=== PATIENT | female | born 2000 | race Hispanic/Latino ===

== ENCOUNTER 2019-07-05 20:33 | Inpatient (IN) | payer MEDICAID, SELFPAY ==
[~2019-07-05 20:33] MED LIST: Iopamidol 370 76% 100 ML VIAL ONE
[2019-07-05 20:59] LABS: #Eosinphils 0.1 thou/uL (0.0-0.7); #Monocytes 1.4 thou/uL (0.11-0.59); #Neutrophils 9.1 thou/uL (1.40-6.50); %Basophils 0.2 % (0.0-1.0); %Eosinophils 0.5 % (0.0-10.0); %Neutrophils 72.2 % (31.0-61.0); Hemoglobin 14.5 g/dL (12.0-16.0); Mean Corpuscular HGB CONC 34.1 g/dL (32.0-36.0); Mean Corpuscular Hemoglobin 30.6 pg (25.0-35.0); Mean Corpuscular Volume 89.7 fL (78.0-98.0); Mean Platelet Volume 6.4 fL (7.4-10.4); Platelet Count 395 thou/uL (130-400); RBC Distribution Width 11.3 % (11.5-14.5); Red Blood Cell (RBC) Count 4.72 mill/uL (4.00-5.20); White Blood Cell (WBC) Count 12.6 thou/uL (4.8-10.8)
[2019-07-05 21:22] LABS: ALT (SGPT) 58 U/L (8-55); AST (SGOT) 93 U/L (5-34); Albumin 4.5 g/dL (3.5-5.0); Alkaline Phosphatase 184 U/L (40-100); Anion Gap 15 mmol/L (10-20); BUN (Urea Nitrogen) 8 mg/dL (7.0-18.7); Bilirubin, Total 0.4 mg/dL (0.2-1.2); Calc. Creatinine Clearance 0 mL/min (70-130); Calcium 9.6 mg/dL (7.8-10.44); Carbon Dioxide 26 mmol/L (22-29); Chloride 99 mmol/L (98-107); Estimated GFR-MDRD 88; Globulin 4.2 g/dL (2.4-3.5); Glucose 109 mg/dL (70-105); Potassium 3.8 mmol/L (3.5-5.1); Protein, Total 8.7 g/dL (6.0-8.3); Sodium 136 mmol/L (136-145)
--- NOTE | 2019-07-05 21:31 | RAD ---
PORTABLE CHEST: 07/05/19 HISTORY: Abdominal pain. Lung ortega are clear. Heart and mediastinum unremarkable. IMPRESSION: No acute process. POS: OFF
[2019-07-05 21:40] LABS: Bilirubin Negative (Negative); Blood, Urine 2+ (Negative); Clarity Turbid (Clear); Glucose, Urine (Dipstick) Normal (Negative); Leukocyte 500 Leu/uL (Negative); Nitrite Negative (Negative); Protein, Urine (Dipstick) 20 mg/dL (Neg-Trace); Renal Epithelial 0-3 HPF (None Seen); Transitional Epithelial 0-3 HPF (None Seen); WBC/HPF Greater than 50 HPF (0-3)
[2019-07-05 21:42] LABS: Bacteria/HPF 1+ HPF (None Seen); Yeast-Budding 1+ HPF (None Seen)
[2019-07-05 21:51] LABS: Pregnancy Test - Urine (BHCG) Negative (Negative); Pregu Control Background? CLEAR/WHITE (CLR/WHITE); Pregu Control Bar Appear? YES (CONTROL BAR); Specific Gravity 1.015 (1.002-1.036)
[2019-07-05] MEDS ORDERED: Piperacillin/Tazobactam 4.5 GM VIAL ONE (21:51)
[2019-07-05] MEDS ORDERED: Ondansetron PF 4 MG/2 ML Vial ONE (21:51)
[2019-07-05] MEDS ORDERED: Morphine 4 MG/ML VIAL ONE (21:51)
[2019-07-05] MEDS ORDERED: Acetaminophen 1,000 MG in Premix Bag 1 BAG IVPB SCH (22:00)
--- NOTE | 2019-07-05 22:47 | ULT ---
Gallbladder ultrasound: Multiple grayscale images of right upper quadrant obtained according to protocol. INDICATIONS: Right upper quadrant pain. FINDINGS: Gallbladder has a normal sonographic appearance. No evidence of gallstones. Common bile duct is normal caliber. Liver is unremarkable. Pancreas is mostly obscured but appears unremarkable as visualized. Right kidney is imaged and appears unremarkable. IMPRESSION: Unremarkable gallbladder ultrasound.
--- NOTE | 2019-07-06 00:03 | CT ---
CT ABDOMEN AND PELVIS WITH IV CONTRAST: 07/05/19 HISTORY: Right lower quadrant pain. Lung bases clear. Liver, spleen, and pancreas unremarkable. Adrenal glands normal. There is abnormal enhancement in the right kidneys renal cortex. There is a focal area of low attenua tion measuring approximately 2.5 cm. Findings were concerning for focal pyelonephritis. Follow-up is recommended. There is other blotchy areas of enhancement in the upper pole of the right kidney. Left kidney enhancement is normal. The urinary bladder shows mild bladder wall thickening which may also indicate urinary tract infecti on. Small bowel loops are normal. Appendix appears normal. Stool throughout the colon. Uterus and adnexa unremarkable. Left ovarian cyst measuring 2 cm. Small amount of free fluid in the c ul-de-sac. IMPRESSION: Blotchy enhancement of the right renal cortex most consistent with pyelonephritis. Mild urinary bladd er wall thickening. Recommend clinical correlation regarding urinary tract infection. Suggest follow- up after treatment. POS: OFF
[2019-07-06] MEDS ORDERED: Ondansetron ODT 4 MG TAB PO PRN (01:10)
[2019-07-06] MEDS ORDERED: Acetaminophen 650 MG Suppository PR PRN (01:10)
[2019-07-06] MEDS ORDERED: Ondansetron PF 4 MG/2 ML Vial IVP PRN (01:10)
[2019-07-06] MEDS ORDERED: Acetaminophen 325 MG TAB PO PRN (01:10)
--- NOTE | 2019-07-06 03:27 | HP ---
PRIMARY CARE DOCTOR: The patient has no PCP. CODE STATUS: Full code. TIME OF EVALUATION: 1:50 a.m. CHIEF COMPLAINT: Abdominal pain. HISTORY OF PRESENT ILLNESS: A 19 [id number] patient with no significant past medical history, who came to the hospital after having severe gradually worsened abdominal pain in the right lower quadrant, has been present for 4 days associated with nausea, vomiting and fever. No clear triggers. No alleviating factors except for medical treatment. REVIEW OF SYSTEMS: CONSTITUTIONAL: No fevers, chills, generalized weakness. RESPIRATORY: No cough, sputum production, shortness of breath. CARDIOVASCULAR: No chest pain or palpitation. GASTROINTESTINAL: The patient has nausea, vomiting. No diarrhea. The patient has right lower quadrant pain. [employer]: No dizziness, headache or feeling lightheaded. GENITOURINARY: No burning on urination. EXTREMITIES: No leg swelling. All other systems were reviewed and negative except for the findings mentioned above. PAST MEDICAL HISTORY: Negative. SOCIAL HISTORY: Negative. FAMILY HISTORY: Reviewed, noncontributory for current presentation. PAST SURGICAL HISTORY: and endometriosis surgery. PSYCHIATRIC HISTORY: Depression. KNOWN ALLERGIES: No known drug allergies. REPORTED MEDICATIONS: None. PHYSICAL EXAMINATION: VITAL SIGNS: On presentation, blood pressure 125/88 with heart rate of 133, respiratory rate was 18, temperature 102.7, pain was 8, oxygen saturation was 98 % on room air, heart rate has remained elevated with a temperature in normal range and she has an episode of hypotension with systolic blood pressure in the 80s. GENERAL APPEARANCE: The patient looks ill. HEENT: Eyes, normal conjunctiva. Moist oral mucosa. Anicteric. No JVD. RESPIRATORY: Bilateral air entry. No rales. No wheezes. Symmetric expansion. CARDIOVASCULAR: Normal rate. Regular rhythm. No murmurs. No gallop. No edema. ABDOMEN: Soft, normal bowel sounds. The patient has right upper quadrant pain and also in the right lower quadrant that is severe, radiating to the back MUSCULOSKELETAL: Baseline range of motion and strength. Skin is warm and intact. No pallor. No rash. No redness. Capillary refill seems to be intact. NEUROLOGIC: No evidence of any new focal weakness. Cranial nerves seems to be intact. PSYCHIATRIC: Patient is in good mood. No anxiety. Optimal judgment. IMAGIN. EKG was reviewed. The patient has sinus tachycardia at the rate of 125, PA 152, QRS 74, QT corrected 464. 2. CT abdomen and pelvis was done. The patient has blotchy enhancement in the right renal cortex most consistent with pyelonephritis, mild urinary bladder wall thickening, recommend clinical correlation. Regarding urinary tract infection, she is to followup with us for treatment. 3. Abdominal ultrasound, the patient has unremarkable gallbladder ultrasound. 4. Chest x-ray was done, the patient had no acute process. LABORATORY DATA: Labs were done, the patient has white count of 12.6, hemoglobin 14.5, MCV 89.7, platelet count 295. Chemistry: Sodium 136, potassium 3.8, chloride 99, carbon dioxide 26, anion gap 15, BUN 8, creatinine 0.83, GFR 8, glucose 109, lactic acid 1.9, calcium 9.6 total bilirubin 0.4, AST 93, ALT 58, alkaline phosphatase 184. Serum total protein 8.7, albumin 4.5, globulin 4.2, albumin to globulin ratio 1.1. Urine was done, was positive, white count greater than 50, too numerous to count, some rbc's. Urine leukocyte esterase positive. ASSESSMENT AND PLAN: The patient will be placed in the hospital with following medical problems. 1. Urinary tract infection that includes kidney leading to pyelonephritis. The patient has been started on broad-spectrum antibiotics. We will continue for now. 2. Follow cultures, adjust treatment as per sensitivity. 3. Sepsis, the patient has persistent tachycardia during my examination. Heart rate was in the 120s. Blood pressure has been in the lower side. When I was examining the patient with systolic in the 80s, has recovered after fluids, so this qualifies for severe sepsis. 4. Source of urinary tract infection/pyelonephritis. We will continue antibiotics and adjust treatment as per sensitivity. 5. Hyperglycemia, 109, this is mild. This is likely secondary to underlying physical distress. We will monitor. No further treatment to be given right now. 6. She has elevated liver function tests, likely secondary to sepsis. We will monitor and treat accordingly. Right upper quadrant ultrasound was normal. 7. Deep venous thrombosis prophylaxis. Job ID: [id number] [facility]
[2019-07-06 03:50] LABS: #Lymphocytes 1.6 thou/uL (1.20-3.40); #Monocytes 0.9 thou/uL (0.11-0.59); #Neutrophils 10.9 thou/uL (1.40-6.50); %Basophils 0.2 % (0.0-1.0); %Eosinophils 0.2 % (0.0-10.0); %Lymphocytes 11.6 % (28.0-48.0); %Monocytes 6.6 % (0.0-4.0); %Neutrophils 81.4 % (31.0-61.0); Hemoglobin 10.8 g/dL (12.0-16.0); Mean Corpuscular HGB CONC 34.3 g/dL (32.0-36.0); Mean Corpuscular Hemoglobin 31.3 pg (25.0-35.0); Mean Platelet Volume 6.5 fL (7.4-10.4); Platelet Count 290 thou/uL (130-400); RBC Distribution Width 11.3 % (11.5-14.5); Red Blood Cell (RBC) Count 3.45 mill/uL (4.00-5.20); White Blood Cell (WBC) Count 13.4 thou/uL (4.8-10.8)
[2019-07-06 04:11] LABS: Anion Gap 10 mmol/L (10-20); BUN (Urea Nitrogen) 5 mg/dL (7.0-18.7); Calc. Creatinine Clearance 0 mL/min (70-130); Calcium 6.7 mg/dL (7.8-10.44); Carbon Dioxide 19 mmol/L (22-29); Chloride 112 mmol/L (98-107); Estimated GFR-MDRD Greater than 90; Glucose 97 mg/dL (70-105); Potassium 3.4 mmol/L (3.5-5.1); Sodium 138 mmol/L (136-145)
[2019-07-06 06:55] VITALS: BMI 26.8
[2019-07-06] MEDS: Sodium Chloride 0.9% 1,000 ML IV SCH ×3 (07:00→23:51)
[2019-07-06] MEDS: Piperacillin/Tazobactam 4.5 GM in Sodium Chloride 0.9% 100 ML IVPB SCH ×3 (07:00→21:38)
[2019-07-06] MEDS ORDERED: FLU VACC QS2019-20(6MOS UP)/PF 60 MCG/0.5 ML SYRINGE IM ONE (07:15)
[2019-07-06] MEDS: Heparin 5,000 UNITS/ML VIAL SC SCH ×3 (07:50→20:22)
[2019-07-06] MEDS ORDERED: Potassium Chloride 20 MEQ TAB PO SCH (08:15)
[2019-07-06] MEDS: Calcium Citrate 950 MG TAB PO SCH ×2 (08:28→20:21)
--- NOTE | 2019-07-06 12:22 | PRG ---
DATE OF SERVICE: 07/06/2019 SUBJECTIVE: The patient is seen and examined at the bedside. She does not have much complaints to offer except for some pain in the right flank radiating to the right groin. She has some nausea and vomiting before. OBJECTIVE: VITAL SIGNS: Blood pressure is 98/63, pulse is 88, temperature is 98.5, respirations 16, O2 saturation is 99% on room air. HEENT: Head is atraumatic and normocephalic. Eyes are PERRLA. Sclerae are nonicteric. Oral mucosa is moist. NECK: Supple. LUNGS: Clear. HEART: S1, S2 normal. ABDOMEN: Soft, nontender, mildly tender in the right epigastric area in the flank to palpation. EXTREMITIES: No clubbing, cyanosis, or edema. NEUROLOGICAL: She is alert and oriented x4. There is no any motor or sensory deficit. Cranial nerves are intact. LABORATORY DATA: Labs showed white count of 13.4, hemoglobin of 10.8, hematocrit 31.4, platelet count is 290,000. Sodium of 138, potassium 3.4, chloride 112, CO2 of 19, BUN 5, creatinine 0.67, calcium 6.7, magnesium 1.8, lipase 7, vitamin D 6.4. Microbiology, blood cultures so far negative x2. IMPRESSION: 1. Right flank pain. We suspect that this is pyelonephritis. 2. Sepsis, improved. The patient is not tachycardic anymore. Her blood pressure is still on the lower side, but most likely, her normal blood pressure is running on the lower side too. She is a young girl. 3. Hyperglycemia. 4. Elevated liver function test, to be followed and the right upper quadrant ultrasound was normal. PLAN: Plan is to follow up on cultures. Continue Zosyn 4.5 g every 8 hours IV piggyback. Continue Tylenol p.r.n. and continue DVT prophylaxis with heparin and supplementation of potassium, vitamin D, and calcium. Hypoglycemia is going to be treated and we will follow up on her liver function tests. Job ID: [id number]
[2019-07-07] MEDS: Piperacillin/Tazobactam 4.5 GM in Sodium Chloride 0.9% 100 ML IVPB SCH (05:19)
[2019-07-07 07:48] LABS: #Eosinphils 0.2 thou/uL (0.0-0.7); #Lymphocytes 2.1 thou/uL (1.20-3.40); #Monocytes 1.1 thou/uL (0.11-0.59); #Neutrophils 5.7 thou/uL (1.40-6.50); %Basophils 0.5 % (0.0-1.0); %Eosinophils 1.8 % (0.0-10.0); %Lymphocytes 23.1 % (28.0-48.0); %Monocytes 11.7 % (0.0-4.0); %Neutrophils 62.9 % (31.0-61.0); Hemoglobin 12.5 g/dL (12.0-16.0); Mean Corpuscular HGB CONC 33.5 g/dL (32.0-36.0); Mean Corpuscular Hemoglobin 30.6 pg (25.0-35.0); Mean Corpuscular Volume 91.3 fL (78.0-98.0); Mean Platelet Volume 6.8 fL (7.4-10.4); Platelet Count 335 thou/uL (130-400); RBC Distribution Width 11.5 % (11.5-14.5); Red Blood Cell (RBC) Count 4.09 mill/uL (4.00-5.20); White Blood Cell (WBC) Count 9.1 thou/uL (4.8-10.8)
[2019-07-07 08:16] LABS: Anion Gap 15 mmol/L (10-20); BUN (Urea Nitrogen) 5 mg/dL (7.0-18.7); Calc. Creatinine Clearance 139 mL/min (70-130); Calcium 8.9 mg/dL (7.8-10.44); Carbon Dioxide 18 mmol/L (22-29); Chloride 108 mmol/L (98-107); Estimated GFR-MDRD Greater than 90; Glucose 88 mg/dL (70-105); Potassium 3.8 mmol/L (3.5-5.1); Sodium 137 mmol/L (136-145)
[2019-07-07] MEDS: Calcium Citrate 950 MG TAB PO SCH (08:18)
[2019-07-07] MEDS: Sodium Chloride 0.9% 1,000 ML IV SCH (08:18)
[2019-07-07] MEDS: Heparin 5,000 UNITS/ML VIAL SC SCH (08:19)
[2019-07-07 09:28] LABS: ALT (SGPT) 44 U/L (8-55); AST (SGOT) 51 U/L (5-34); Albumin 3.4 g/dL (3.5-5.0); Alkaline Phosphatase 147 U/L (40-100); Bilirubin, Direct 0.4 mg/dL (0.1-0.3); Bilirubin, Total 0.6 mg/dL (0.2-1.2); Protein, Total 6.7 g/dL (6.0-8.3)
[2019-07-07 11:20] VITALS: BP 124/76; TEMP 98.2
--- NOTE | 2019-07-07 21:12 | DIS ---
DATE OF ADMISSION: 07/06/2019 DATE OF DISCHARGE: 07/07/2019 FINAL DIAGNOSES AT THE TIME OF DISCHARGE: 1. Sepsis secondary to right pyelonephritis. 2. Right pyelonephritis. 3. Hyperglycemia. 4. Elevated liver function test, most likely related to infection. 5. Deficiency of vitamin D. HOSPITAL COURSE: The patient is a 19-year-old female, who was admitted to the hospital with acute onset of pain which was in the abdomen in the right lower quadrant, who presented for 4 days. This was associated with nausea, vomiting, and fever. They were not clear triggers. No alleviating factors. She came to the emergency room and was found to have temperature of 102.7 with heart rate of 133 and respiratory rate of 18, blood pressure was 125/88. She was saturating 98% on room air. The pain was rated at 8. At the time of ER evaluation, her white count was 12.6, hemoglobin 14.5, MCV 89.7, platelet count 295,000. Sodium 136, potassium 3.8, chloride 99, CO2 of 26, BUN 8, creatinine 0.83, AST 93, ALT 58, alkaline phosphatase 184. Urine was positive with white cell count greater than 50 to numerous to count some rbc's and esterase was positive. She had some episodes of hypotension while in the emergency room and she was treated with IV fluids. She got admitted to the hospital for further evaluation. Her EKG at the time of evaluation showed sinus tachycardia with rate of [address] of the abdomen and pelvis showed blotchy enhancement in the right renal cortex most likely consistent with pyelonephritis and mild urinary bladder wall thickening. Abdominal ultrasound did not show any problems with her gallbladder and the chest x-ray did not show any acute process. The patient was placed on broad-spectrum antibiotics and got admitted to the hospital. Her white count gradually went down to 9.1. Her temperature was down to normal range. Her pain subsided quickly. Two blood cultures came back negative and urine culture came back positive for Escherichia coli 50,000-75,000 CFUs per mL. E coli was pansensitive except for Bactrim. She is doing well. PHYSICAL EXAMINATION: VITAL SIGNS: Her blood pressure is 124/76, temperature is 98.2, pulse is 80, respirations 16, O2 saturation is 99% on room air. She is evaluated and examined. LUNGS: Clear. HEART: S1, S2 normal. No S3. No S4. No any murmur. ABDOMEN: Soft and nontender. The patient is discharged home in good condition with recommendation to stay on regular diet. ACTIVITIES: As tolerated. MEDICATIONS: At the time of discharge; 1. Levofloxacin 500 mg daily for the next 12 days. 2. Vitamin D3 of 10,000 units daily since her vitamin D level came back low at 6.4. Clinically, she looks very good and she is discharged home. FOLLOWUP: She will follow up with her primary care physician. She is going to be established within a week. TIME SPENT: Time spent on this discharge is less than 30 minutes. Job ID: [id number]
== END 2019-07-07 13:09 | disposition home or self-care (01) | DRG 872 ==
LOC: ERS 20:33 → T4-A 07-06 00:25
PROVIDERS: ADMIT Hospitalist; ATTEND Hospitalist
DX: A41.9 Sepsis, unspecified organism (principal); N12 Tubulo-interstitial nephritis, not specified as acute or chronic; Z16.39 Resistance to other specified antimicrobial drug; R73.9 Hyperglycemia, unspecified; E55.9 Vitamin D deficiency, unspecified; N32.89 Other specified disorders of bladder; B96.20 Unspecified Escherichia coli [E. coli] as the cause of diseases classified elsewhere; F32.9 Major depressive disorder, single episode, unspecified; R65.20 Severe sepsis without septic shock; Z23 Encounter for immunization
CPT/HCPCS: 36415; 71045; 74177; 76705; 80048; 80053; 80076; 81003; 81015; 81025; 82306; 83605; 83690; 83735; 85025; 87040; 87077; 87086; 87186; 93005; J0131; J1644; J2270; J2405; J2543; J3490; Q9967

== ENCOUNTER 2020-09-01 07:20 | Inpatient (IN) | payer MEDICAID, OTHER, SELFPAY ==
[2020-09-01 08:22] VITALS: BMI 29.6
[2020-09-01] MEDS ORDERED: Butorphanol Tartrate 1 MG/ML VIAL SLOW IVP PRN (09:23)
[2020-09-01] MEDS ORDERED: Ondansetron PF 4 MG/2 ML Vial IVP PRN ×3 (09:23→15:34)
[2020-09-01] MEDS ORDERED: hydrALAZINE 20 MG/ML VIAL SLOW IVP PRN ×2 (09:23→15:34)
[2020-09-01] MEDS ORDERED: Famotidine/PF 20 mg/2ml Vial SLOW IVP PRN (09:23)
[2020-09-01] MEDS ORDERED: Bicitra 30 ML UDCUP PO PRN (09:23)
[2020-09-01] MEDS ORDERED: Lactated Ringer's 1,000 ML IV SCH (09:30)
[2020-09-01] MEDS ORDERED: CEFAZOLIN 2 GM in Premix Bag 1 BAG IVPB SCH (09:30)
--- NOTE | 2020-09-01 10:57 | ULT ---
RIGHT UPPER EXTREMITY VENOUS DOPPLER ULTRASOUND: HISTORY: Right upper extremity edema TECHNIQUE: Grayscale color-flow and spectral Doppler imaging of the deep venous systems of the right upper extre mity was performed FINDINGS: There is good flow, compression and normal spectral waveforms in the internal jugular, subclavian, ax illary, brachial, radial, ulnar, basilic and cephalic veins of the right upper extremity. IMPRESSION: No evidence of DVT in the right upper extremity.
[2020-09-01 11:07] LABS: Hemoglobin 11.6 g/dL (12.0-16.0); Mean Corpuscular HGB CONC 31.8 g/dL (32.0-36.0); Mean Corpuscular Hemoglobin 24.8 pg (27.0-31.0); Mean Corpuscular Volume 78.1 fL (78.0-98.0); Mean Platelet Volume 8.4 fL (7.4-10.4); Platelet Count 275 thou/uL (130-400); RBC Distribution Width 15.1 % (11.5-14.5); Red Blood Cell (RBC) Count 4.65 mill/uL (4.20-5.40); White Blood Cell (WBC) Count 9.7 thou/uL (4.8-10.8)
[2020-09-01 11:36] LABS: HBSAg Index 0.13 S/CO (0-0.99); Hep B Surf Ag Non-Reactive S/CO (NonReactive); Syphilis Antibody Nonreactive (Nonreactive); Syphilis Antibody Index 0.03 S/CO (<1.00 Non-Reactive)
[2020-09-01] MEDS ORDERED: Ondansetron PF 4 MG/2 ML Vial ONE (11:53)
[2020-09-01] MEDS ORDERED: Morphine PF 10 MG/10 ML VIAL ONE (11:53)
[2020-09-01] MEDS ORDERED: Oxytocin 10 UNITS/ML VIAL ONE (11:53)
--- NOTE | 2020-09-01 12:05 | PDOC.LDHP ---
Labor and Delivery H&P HPI: 20 y/o at 38 weeks and 1/7 presents farhat, declines TOLAC due to previous CPD. Current gestational age (weeks): 38 Due date: 09/14/20 Grav: 2 Para: 1 Current complications: none Abnormal US findings: No Current medications: pre-diana vitamins Previous surgical history: low tranverse CS Allergies/Adverse Reactions: Allergies Allergy/AdvReac Type Severity Reaction Status Date / Time No Known Allergies Allergy Verified 09/01/20 08:09 Social history: none - Physical Exam Vital signs reviewed and normal: yes General: NAD, resting Heart: RRR Lungs: CTAB Abdomen: gravid Extremeties: no edema FHT: category 1 - Vaginal Exam cm dilated: 2 - Assessment L&D Assessment: term patient in labor - Plan Plan: to OR for section
[2020-09-01] MEDS ORDERED: ePHEDrine 50 MG/ML VIAL ONE (12:32)
[2020-09-01] MEDS ORDERED: Ketorolac Tromethamine 30 MG/ML VIAL IVP PRN (12:37)
[2020-09-01] MEDS ORDERED: Naloxone HCl 0.4 mg/ml Vial IVP PRN ×2 (12:37)
[2020-09-01] MEDS ORDERED: diphenhydrAMINE 50 MG/ML VIAL IVP PRN (12:37)
[2020-09-01] MEDS ORDERED: Promethazine HCl 25 MG SUPP PR PRN (12:37)
[2020-09-01] MEDS ORDERED: Naloxone HCl 0.4 mg/ml Vial IV PRN (12:37)
[2020-09-01] MEDS ORDERED: Promethazine HCl 25 MG/ML VIAL IM PRN ×2 (12:37→15:34)
[2020-09-01] MEDS ORDERED: Communication Order-Pharmacy FS SCH (12:45)
[2020-09-01] MEDS ORDERED: Simethicone Chewable 80 MG TAB PO PRN (15:34)
[2020-09-01] MEDS ORDERED: Methylergonovine 0.2 MG/ML VIAL IM PRN (15:34)
[2020-09-01] MEDS ORDERED: Lanolin Ointment 7 GM TUBE TOP PRN (15:34)
[2020-09-01] MEDS ORDERED: Bisacodyl 10 MG SUPP PR PRN (15:34)
[2020-09-01] MEDS ORDERED: Measles/Mumps/Rubella 10 MCG/0.5 ML VIAL SC ONE (15:34)
[2020-09-01] MEDS ORDERED: Adacel (T-DAP) 0.5 ML SYRINGE IM ONE (15:34)
[2020-09-01] MEDS ORDERED: Misoprostol 200 MCG TAB PR PRN (15:34)
[2020-09-01] MEDS ORDERED: Varicella virus, LIVE 0.5 ML VIAL SC ONE (15:34)
[2020-09-01] MEDS ORDERED: diphenhydrAMINE 25 MG CAP PO PRN (15:34)
[2020-09-01] MEDS ORDERED: NS / Oxytocin 40 units/1000ml 1,000 ML IV SCH (15:34)
[2020-09-01 18:19] LABS: SARS-CoV-2 MS2 Positive; SARS-CoV-2 N Gene Negative; SARS-CoV-2 S Gene Negative; SARS-CoV-2 by NAA Not Detected (NotDetected); SARS-CoV-2 orf1ab Negative
[2020-09-02] MEDS ORDERED: HYDROcodone/Acetaminophen 5/325 mg Tablet PO PRN (00:45)
[2020-09-02] MEDS ORDERED: Zolpidem Tartrate 5 MG TAB PO PRN (00:45)
[2020-09-02] MEDS: Docusate Calcium (SURFAK) 240 MG CAP PO SCH ×3 (02:32→22:36)
[2020-09-02 05:38] LABS: Mean Corpuscular HGB CONC 31.3 g/dL (32.0-36.0); Mean Corpuscular Hemoglobin 24.5 pg (27.0-31.0); Mean Corpuscular Volume 78.2 fL (78.0-98.0); Mean Platelet Volume 7.9 fL (7.4-10.4); Platelet Count 222 thou/uL (130-400); RBC Distribution Width 15.2 % (11.5-14.5); Red Blood Cell (RBC) Count 4.08 mill/uL (4.20-5.40); White Blood Cell (WBC) Count 10.7 thou/uL (4.8-10.8)
[2020-09-02] MEDS: Prenatal Vitamin 1 TAB PO SCH (08:08)
[2020-09-02] MEDS ORDERED: FLU VACC QS2020-21(6MOS UP)/PF 60 MCG/0.5 ML SYRINGE IM ONE (08:30)
[2020-09-02] MEDS: HYDROcodone/Acetaminophen 5/325 mg Tablet PO PRN ×2 (11:13→17:47)
--- NOTE | 2020-09-02 19:50 | PDOC.PP ---
Post Progress Note Post Day #: 1 PO intake tolerated: yes Flatus: yes Ambulation: yes Vital Signs (12 hours) Temp Pulse Resp BP Pulse Ox 09/02/20 17:02 99.3 F 84 12 106/66 98 09/02/20 11:50 97.5 F L 71 20 117/71 97 09/02/20 08:21 98.3 F 71 20 117/71 97 Weight Weight 157 lb - Physical Examination General: NAD Cardiovascular: no m/r/g, RRR Respiratory: clear to auscultation bilaterally, non-labored breathing Abdominal: + bowel sounds, lochia, no distention, appropriately TTP Extremities: negative homans (B) Skin: CS incision dry & intact, no rash Neurological: no gross focal deficits Psychiatric: A&Ox3, normal affect Result Diagrams: 09/02/20 05:26 Additional Labs: Post Labs Hep Bs Antigen Non-Reactive S/CO (NonReactive) 09/01/20 10:40 Blood Type A POSITIVE 09/01/20 10:40
[2020-09-02] MEDS: Ibuprofen 800 MG TAB PO SCH (22:36)
[2020-09-03] MEDS: HYDROcodone/Acetaminophen 5/325 mg Tablet PO PRN (00:37)
[2020-09-03] MEDS: Ibuprofen 800 MG TAB PO SCH ×2 (05:51→15:58)
[2020-09-03] MEDS: Docusate Calcium (SURFAK) 240 MG CAP PO SCH (08:50)
[2020-09-03] MEDS: Prenatal Vitamin 1 TAB PO SCH (08:50)
[2020-09-03 11:41] VITALS: BP 117/79; TEMP 97.9
--- NOTE | 2020-09-03 17:03 | PDOC.PP ---
Post Progress Note Post Day #: 2 PO intake tolerated: yes Flatus: yes Ambulation: yes Vital Signs (12 hours) Temp Pulse Resp BP Pulse Ox 09/03/20 11:41 97.9 F 84 20 117/79 98 09/03/20 08:01 98.6 F 77 20 112/69 97 09/03/20 05:50 98.4 F 78 16 124/60 Weight Weight 157 lb - Physical Examination General: NAD Cardiovascular: no m/r/g, RRR Respiratory: clear to auscultation bilaterally Abdominal: + bowel sounds, lochia, no distention Extremities: negative homans (B) Skin: CS incision dry & intact, no rash Neurological: no gross focal deficits Psychiatric: A&Ox3, normal affect Result Diagrams: 09/02/20 05:26 Additional Labs: Post Labs Hep Bs Antigen Non-Reactive S/CO (NonReactive) 09/01/20 10:40 Blood Type A POSITIVE 09/01/20 10:40
--- NOTE | 2020-09-03 23:19 | OP ---
DATE OF PROCEDURE: 09/01/2020 TIME OF SURGERY: 12:50 [place] Standard Time. PREOPERATIVE DIAGNOSIS: Intrauterine at 38 weeks and one day with a spontaneous onset of labor and declined vaginal after . POSTOPERATIVE DIAGNOSIS: Intrauterine at 38 weeks and one day with a spontaneous onset of labor and declined vaginal after . PROCEDURE PERFORMED: Repeat low transverse section. FINDINGS: Viable female weighing 3230 g or 7 pounds 2 ounces; Apgars 8 and 9. QUANTITATIVE BLOOD LOSS: 340 mL. COMPLICATIONS: None. DETAILS OF THE PROCEDURE: After obtaining consent, the patient was taken back to the operating room where her regional anesthesia was found to be adequate. The patient was placed in the dorsal supine position with leftward tilt. The skin was tested for adequate anesthesia and a scalpel was then used to make a Pfannenstiel incision which was carried down to the underlying rectus fascia. The fascia was incised in the midline and the fascial incision extended in both lateral directions. 2 Galileo clamps were placed at the superior aspect of the fascia and the rectus muscles were dissected away. Similarly, 2 Galileo clamps were placed at the inferior aspect of the incision and rectus muscles dissected away. The rectus muscles were then in the midline and the peritoneum identified and entered bluntly with the hemostat. The peritoneal incision was then extended superiorly and inferiorly. A bladder blade was then placed within the peritoneal cavity and a bladder flap was made with Metzenbaum scissors and pickups with teeth. The bladder blade was replaced. A clean scalpel was used to make a uterine incision. The baby was then delivered with gentle fundal pressure without difficulty. The baby's mouth and nose were bulb suctioned and the cord clamped and cut. The baby was then handed to waiting attendants. Cord blood and cord gases were obtained. The placenta was manually extracted. The uterus exteriorized, cleared of all clots and debris, and repaired with #1 chromic suture in a running, locked fashion. Hemostasis at the uterine wall was excellent. The bladder flap was repaired with 2-0 Monocryl in a running fashion. The tubes and ovaries were inspected and appeared normal. The posterior cul-de-sac was blotted dry and the uterus was replaced within the abdomen. Again, the uterus was firm, and hemostasis was excellent at the uterine repair. Peritoneum was closed with 2-0 chromic suture in a running fashion. Fascia was reapproximated with 0 Vicryl, using 2 running sutures tied in the midline. The subcutaneous tissue was irrigated. Hemostasis was assured and the skin closed with 3-0 Monocryl and Dermabond adhesive. The patient was then transferred to the ambulatory bed and taken to recovery in stable condition. Job ID: [id number]
== END 2020-09-03 17:58 | disposition home or self-care (01) | DRG 788 ==
LOC: L&D/OP 07:20 → L&D 09:23 → 3SE 17:20
PROVIDERS: ADMIT Obstetrics & Gynecology; ATTEND Obstetrics & Gynecology
PROC: 10D00Z1 Extraction of Products of Conception, Low, Open Approach (ICD-10-PCS; principal; 2020-09-01)
DX: O34.211 Maternal care for low transverse scar from previous cesarean delivery (principal); Z3A.38 38 weeks gestation of pregnancy; Z37.0 Single live birth; Z23 Encounter for immunization; Z20.828 Contact with and (suspected) exposure to other viral communicable diseases
CPT/HCPCS: 36415; 51702; 85027; 86780; 86850; 86900; 86901; 87340; 87635; 90715; 99285; J0595; J0690; J1885; J2270; J2405; J3490; U0003

== ENCOUNTER 2020-11-29 18:24 | Observation (INO) | payer MEDICAID, SELFPAY ==
[~2020-11-29 18:24] MED LIST changes: -Iopamidol 370 76% 100 ML VIAL ONE; +Iopamidol-370 76% 500 ML 1 ML ONE
[2020-11-29 19:00] LABS: #Lymphocytes 1.2 thou/uL (1.20-3.40); #Monocytes 0.9 thou/uL (0.11-0.59); #Neutrophils 9.6 thou/uL (1.40-6.50); %Eosinophils 0.1 % (0.0-10.0); %Monocytes 7.3 % (0.0-10.0); %Neutrophils 82.5 % (42.0-75.0); Hemoglobin 13.2 g/dL (12.0-16.0); Mean Corpuscular HGB CONC 33.2 g/dL (32.0-36.0); Mean Corpuscular Hemoglobin 28.8 pg (27.0-31.0); Mean Corpuscular Volume 86.7 fL (78.0-98.0); Mean Platelet Volume 7.4 fL (7.4-10.4); Platelet Count 314 thou/uL (130-400); RBC Distribution Width 16.8 % (11.5-14.5); Red Blood Cell (RBC) Count 4.58 mill/uL (4.20-5.40); White Blood Cell (WBC) Count 11.6 thou/uL (4.8-10.8)
[2020-11-29 19:11] LABS: BHCG - Serum Negative (NEGATIVE); Pregs Control Background? CLEAR/WHITE (CLR/WHITE); Pregs Control Bar Appear? YES (CONTROL BAR)
[2020-11-29 19:25] LABS: ALT (SGPT) 73 U/L (8-55); AST (SGOT) 101 U/L (5-34); Albumin 4.2 g/dL (3.5-5.0); Alkaline Phosphatase 162 U/L (40-110); Anion Gap 15 mmol/L (10-20); BUN (Urea Nitrogen) 7 mg/dL (7.0-18.7); Bilirubin, Total 0.7 mg/dL (0.2-1.2); Calc. Creatinine Clearance 0 mL/min (70-130); Carbon Dioxide 24 mmol/L (22-29); Chloride 100 mmol/L (98-107); Globulin 3.9 g/dL (2.4-3.5); Glucose 113 mg/dL (70-105); Lipase 7 U/L (8-78); Potassium 3.4 mmol/L (3.5-5.1); Protein, Total 8.1 g/dL (6.0-8.3); Sodium 136 mmol/L (136-145)
[2020-11-29] MEDS ORDERED: Acetaminophen 500 MG TAB ONE (19:40)
--- NOTE | 2020-11-29 20:01 | RAD ---
XR Chest 1 View Portable HISTORY: Dyspnea COMPARISON: 07/05/2019 FINDINGS: The heart size is normal. The lungs are well expanded without focal areas of consolidation, pneumothorax or pleural effusions. IMPRESSION: No radiographic evidence of acute cardiopulmonary process.
[2020-11-29 20:09] LABS: Bilirubin Negative (Negative); Blood, Urine 1+ (Negative); Clarity Turbid (Clear); Glucose, Urine (Dipstick) Normal (Negative); Ketone, Urine 20 mg/dL (Negative); Leukocyte 500 Leu/uL (Negative); Nitrite Negative (Negative); Protein, Urine (Dipstick) 30 mg/dL (Neg-Trace); Specific Gravity, Urine 1.018 (1.002-1.036); Squamous Epithelial 0-3 HPF (0-3); Urobilinogen Normal mg/dL (Less than 2); WBC/HPF Greater than 50 HPF (0-3); pH, Urine 5.5 (5.0-9.0)
[2020-11-29 20:10] LABS: Bacteria/HPF 1+ HPF (None Seen)
[2020-11-29] MEDS ORDERED: cefTRIAXone\\ROCEPHIN 2 GM VIAL ONE (20:23)
[2020-11-29] MEDS ORDERED: Vancomycin 1 GM/200 ML BAG ONE (20:52)
--- NOTE | 2020-11-29 23:38 | CT ---
CT PULMONARY ANGIOGRAM WITH IV CONTRAST AND 3D POSTPROCESSING: Date; 11/29/2020 HISTORY: Elevated D-Dimer. Dyspnea. FINDINGS: No filling defects are seen in the pulmonary arterial vasculature to suggest pulmonary embolism. The thoracic aorta is well-opacified without aneurysm or dissection. No pleural or pericardial effusions are seen. No pneumothoraces, focal areas of consolidation, lung nodules, or masses are seen. No acute osseous abnormalities are identified. IMPRESSION: No CT evidence of pulmonary embolism or thoracic aortic dissection. POS: OFF
--- NOTE | 2020-11-29 23:41 | CT ---
CT ABDOMEN AND PELVIS WITH IV CONTRAST: Date: 11/29/2020 HISTORY: Fever, body aches, chills, dysuria, urinary frequency, and left abdominal pain. COMPARISON: 07/05/2019. FINDINGS: The lung bases are clear. No calcified gallstones are seen. The gallbladder is contracted. The liver, spleen, pancreas, adrenal glands, and right kidney are normal. There is a focal area of blotchy enha ncement in the left posterior renal cortex. No free air, free fluid, or lymphadenopathy are seen. The small bowel loops are not abnormally dilate d. A normal appearing appendix is present. Aorta is of normal caliber. Uterus and ovaries are present . No acute osseous abnormalities are seen. IMPRESSION: Findings are suspicious for left-sided pyelonephritis. POS: OFF
[2020-11-30 00:54] VITALS: BMI 24.8
[2020-11-30] MEDS ORDERED: Ondansetron PF 4 MG/2 ML Vial IVP PRN (01:00)
[2020-11-30] MEDS ORDERED: Ondansetron ODT 4 MG TAB SL PRN (01:00)
[2020-11-30] MEDS: Sodium Chloride 0.9% 1,000 ML IV SCH ×4 (01:16→13:27)
[2020-11-30] MEDS: Acetaminophen 325 MG TAB PO PRN ×2 (02:03→09:50)
[2020-11-30] MEDS ORDERED: Potassium Chloride 20 MEQ TAB PO SCH (03:45)
--- NOTE | 2020-11-30 03:52 | PDOC.HHP ---
Hospitalist HPI History of Present Illness: This is a 20-year-old female patient if no significant past medical history presents with left flank pain, fever headache chills dysuria frequency for the past couple of days. This got progressively worseleading her to come to the ED for further evaluation. On presentation her blood pressure was 117/84, pulse 141, respirate 18, temperature 103.1 saturating 98% on room air. Labs showed leukocytosis of 11.6, no bands. Chemistry showed potassium 3.4, glucose 113 AST 101, ALT 73 alkaline phosphatase 62. Urinalysis showed turbid urine with 500 leukocyte esterases 1+ bacteria and greater than 50 WBCs. Chest x-ray revealed no acute cardiopulmonary process. CT a of chest showed no pulmonary embolism, CT abdomen revealed suspicious for left-sided pyelonephritis. She received 2 L of normal saline, 1 g of vancomycin 2 g ceftriaxone and 1 g of Tylenol. Hospitalist team consulted to admit. Allergies/Adverse Reactions: Allergy/AdvReac Type Severity Reaction Status Date / Time No Known Allergies Allergy Verified 11/30/20 00:43 Past History: Past medical history: Endometriosis Past surgical history: section Family history: None of significance. Social history: No smoke alcohol illicit drug use. History family Hospitalist HPI ROS Constitutional: reports: fever, chills, sweats, malaise. denies: weakness Respiratory: denies: cough, shortness of breath, hemoptysis Cardiovascular: denies: chest pain, palpitations, orthopnea Gastrointestinal: reports: nausea, vomiting, abdominal pain. denies: diarrhea, constipation Genitourinary: reports: dysuria, frequency. denies: incontinence, hematuria, retention Musculoskeletal: denies: neck pain, shoulder pain Neurological: denies: weakness, numbness, incoordination All other systems reviewed; all pertinent +/- noted in HPI/Subj Hospitalist Exam Vitals: Vital Signs (12 hours) Temp Pulse Resp BP Pulse Ox 11/30/20 01:04 99.7 F H 112 H 16 117/74 97 Weight Weight 136 lb General Appearance: awake alert General - other findings: No acute distress Eye: PERRL, anicteric sclera ENT: normocephalic atraumatic Heart: no murmur, no rubs Heart - other findings: Tachycardic Respiratory: CTAB, no wheezes, no rales, no ronchi Gastrointestinal: soft, non-tender, normal bowel sounds Gastrointestinal - other findings: Left-sided flank tenderness. Extremities: no cyanosis, no clubbing, no edema Skin: normal turgor, no lesions Neurological: cranial nerve grossly intact, no weakness, no focal deficits Psychiatric: normal affect, normal behavior, A&O x 3 Hospitalist Results Result Diagrams: 11/29/20 18:48 11/29/20 18:48 Lab results: Laboratory Last Values WBC 11.6 thou/uL (4.8-10.8) H 11/29/20 18:48 RBC 4.58 mill/uL (4.20-5.40) 11/29/20 18:48 Hgb 13.2 g/dL (12.0-16.0) 11/29/20 18:48 Hct 39.7 % (36.0-47.0) 11/29/20 18:48 MCV 86.7 fL (78.0-98.0) 11/29/20 18:48 MCH 28.8 pg (27.0-31.0) 11/29/20 18:48 MCHC 33.2 g/dL (32.0-36.0) 11/29/20 18:48 RDW 16.8 % (11.5-14.5) H 11/29/20 18:48 Plt Count 314 thou/uL (130-400) 11/29/20 18:48 MPV 7.4 fL (7.4-10.4) 11/29/20 18:48 Neutrophils % 82.5 % (42.0-75.0) H 11/29/20 18:48 Lymphocytes % 10.0 % (21.0-51.0) L 11/29/20 18:48 Monocytes % 7.3 % (0.0-10.0) 11/29/20 18:48 Eosinophils % 0.1 % (0.0-10.0) 11/29/20 18:48 Basophils % 0.0 % (0.0-1.0) 11/29/20 18:48 Neutrophils # 9.6 thou/uL (1.40-6.50) H 11/29/20 18:48 Lymphocytes # 1.2 thou/uL (1.20-3.40) 11/29/20 18:48 Monocytes # 0.9 thou/uL (0.11-0.59) H 11/29/20 18:48 Eosinophils # 0.0 thou/uL (0.0-0.7) 11/29/20 18:48 Basophils # 0.0 thou/uL (0.0-0.2) 11/29/20 18:48 D-Dimer 1.13 *mcg/mL (0.27-0.43) H 11/29/20 18:48 Sodium 136 mmol/L (136-145) 11/29/20 18:48 Potassium 3.4 mmol/L (3.5-5.1) L 11/29/20 18:48 Chloride 100 mmol/L (98-107) 11/29/20 18:48 Carbon Dioxide 24 mmol/L (22-29) 11/29/20 18:48 Anion Gap 15 mmol/L (10-20) 11/29/20 18:48 BUN 7 mg/dL (7.0-18.7) 11/29/20 18:48 Creatinine 0.82 mg/dL (0.6-1.1) 11/29/20 18:48 Estimated GFR (MDRD) 88 11/29/20 18:48 Glucose 113 mg/dL (70-105) H 11/29/20 18:48 Lactic Acid 1.1 mmol/L (0.5-2.2) 11/29/20 18:48 Calcium 9.0 mg/dL (7.8-10.44) 11/29/20 18:48 Total Bilirubin 0.7 mg/dL (0.2-1.2) 11/29/20 18:48 AST 101 U/L (5-34) H 11/29/20 18:48 ALT 73 U/L (8-55) H 11/29/20 18:48 Alkaline Phosphatase 162 U/L (40-110) H 11/29/20 18:48 Serum Total Protein 8.1 g/dL (6.0-8.3) 11/29/20 18:48 Albumin 4.2 g/dL (3.5-5.0) 11/29/20 18:48 Globulin 3.9 g/dL (2.4-3.5) H 11/29/20 18:48 Albumin/Globulin Ratio 1.1 g/dL (1.2-2.2) L 11/29/20 18:48 Lipase 7 U/L (8-78) L 11/29/20 18:48 Serum , Qual Negative (NEGATIVE) 11/29/20 18:48 Urine Color Yellow (Yellow) 11/29/20 19:50 Urine Clarity Turbid (Clear) A 11/29/20 19:50 Urine pH 5.5 (5.0-9.0) 11/29/20 19:50 Ur Specific Gwynn 1.018 (1.002-1.036) 11/29/20 19:50 Urine Protein 30 mg/dL (Neg-Trace) A 11/29/20 19:50 Urine Glucose (UA) Normal mg/dL (Negative) 11/29/20 19:50 Urine Ketones 20 mg/dL (Negative) A 11/29/20 19:50 Urine Blood 1+ (Negative) A 11/29/20 19:50 Urine Nitrite Negative (Negative) 11/29/20 19:50 Urine Bilirubin Negative (Negative) 11/29/20 19:50 Urine Urobilinogen Normal mg/dL (Less than 2) 11/29/20 19:50 Ur Leukocyte Esterase 500 Sage/uL (Negative) A 11/29/20 19:50 Urine RBC 7-10 HPF (0-3) A 11/29/20 19:50 Urine WBC Greater than 50 HPF (0-3) A 11/29/20 19:50 Ur Squamous Epith Cells 0-3 HPF (0-3) 11/29/20 19:50 Urine Bacteria 1+ HPF (None Seen) A 11/29/20 19:50 Hospitalist H&P A/P Plan: This a 20-year-old female patient with a history of endometriosis who presents with flank pain fevers and dysuria frequency concerning for left pyelonephritis and urosepsis. Sepsis Patient had tachycardia and elevated WBCs with 4) left kidney and UTI. Received 2 L in ED. Continue 100 mils per hour normal saline Received Vanco and ceftriaxone in ED We will continue with ceftriaxone for now Follow-up on blood culturesurine cultures. Left pyelonephritis IV fluids Antibiotic meds as above. Hypokalemia Potassium 3.4 Replace potassium Check mag VT prophylaxisLovenox CODE STATUSfull code
[2020-11-30 12:47] LABS: SARS-CoV-2 PCR by NAA Not Detected (NotDetected)
[2020-11-30] MEDS: Cefdinir 300 MG CAP PO SCH ×2 (16:44→17:29)
--- NOTE | 2020-11-30 17:03 | PDOC.DS.DS ---
Provider Date of Admission: 11/29/20 23:00 Date of Discharge: 11/30/20 Admitting Provider: Shaji Lazo MD Primary Care Physician: NO PCP PROVIDER Course Hospital Course: Discharge Diagnoses: 1. Sepsis secondary to pyelonephritis 2. Hypokalemia 3. Transaminitis Brief HPI: This is a 20 year old female with history of UTI's in the past since she was 5 years old who presented to the hospital with flank pain. She had a fever on , then flank pain on Sunday that continued to worsen over the last few days so she came to the hospital. She also had some dysuria as well. She had a temperature of 102.7, HR of 141, WBC of 11. Her UA showed turbid urine, greater than 50 WBC. She was given vancomycin and ceftriaxone and admitted to the hospital for further workup. Hospital Course: the patient's flank pain and dysuria resolved. Her heart rate normalized. BLood cultures were preliminarily negative. Urine culture grew 25,000 to 75,000 gram negative armen. I called microbiology lab and appeared to be non-lactose fermenting, oxidase positive species, so likely Proteus. Patient reported interest in going home because she has a two year old child who will have no supervision in the evening today that she needs to take care of. I will discharge her on cefdinir for six days. Of course, if any of her cultures show resistance, will call the patient and inform her. She was advised to f/u with her PCP in a week. Pertinent Studies: CTA thorax: no PE CT abdomen: left sided pyelonephritis Lab Results: 11/29/20 18:48 11/29/20 18:48 Abnormal Lab Results - Last 48 hrs 11/29/20 18:48: Potassium 3.4 L, AST 101 H, ALT 73 H, Alkaline Phosphatase 162 H, Globulin 3.9 H, Albumin/Globulin Ratio 1.1 L, Lipase 7 L 11/29/20 18:48: WBC 11.6 H, RDW 16.8 H, Neutrophils % 82.5 H, Lymphocytes % 10.0 L, Neutrophils # 9.6 H, Monocytes # 0.9 H 11/29/20 18:48: D-Dimer 1.13 H 11/29/20 19:50: Urine Clarity Turbid A, Urine Protein 30 A, Urine Ketones 20 A, Urine Blood 1+ A, Ur Leukocyte Esterase 500 A, Urine RBC 7-10 A, Urine WBC Greater than 50 A, Urine Bacteria 1+ A Microbiology - Entire Visit 11/29/20 19:50 Urine clean catch Urine Culture - Preliminary Gram Negative Armen 11/29/20 18:48 Venous blood - Left Arm Blood Culture - Preliminary Specimen has been received and culture in progress. No Growth to date. 11/29/20 18:48 Venous blood - Right Arm Blood Culture - Preliminary Specimen has been received and culture in progress. No Growth to date. Vitals: Vital Signs (12 hours) Temp Pulse Resp BP Pulse Ox 11/30/20 11:56 98.3 F 108 H 18 103/69 98 11/30/20 09:50 102.4 F H 11/30/20 07:22 99.7 F H 117 H 18 114/77 98 11/30/20 05:04 97.5 F L 99 20 94/61 97 Weight Weight 136 lb Physical Exam: The patient was seen and examined on the day of discharge. General Appearance: NAD, awake alert Eye: PERRL, anicteric sclera ENT: normocephalic atraumatic, no oropharyngeal lesions Neck: no JVD Respiratory: CTAB, no wheezes, no rales, no ronchi Cardiovascular: RRR, no murmur, no gallops, no rubs Gastrointestinal: soft, non-tender, non-distended, normal bowel sounds Extremities: no cyanosis, no clubbing, no edema Skin: normal turgor, no lesions Neurological: cranial nerve grossly intact, normal sensation to touch, no focal deficits, no new deficit Musculoskeletal: normal tone, normal strength, no muscle wasting PSYCH: normal affect, normal behavior, A&O x 3 Plan Prescriptions: Cefdinir [Omnicef] 300 mg PO BID #11 cap Home Medications: Medication Instructions Recorded Confirmed Type Cefdinir [Omnicef] 300 mg PO BID #11 cap 11/30/20 Rx Allergies: No Known Allergies Allergy (Verified 11/30/20 00:43) Activity:: Activity as Tolerated Nourishment:: Regular Diet Referrals: PROVIDER,NO PCP [Primary Care Provider] - 7 Days Disposition: HOME Quality CORE MEASURES:: N/A
[2020-11-30 17:31] VITALS: BP 104/70; TEMP 100.1
[2020-11-30] MEDS ORDERED: cefTRIAXone\\ROCEPHIN 2 GM in Sodium Chloride 0.9% 100 ML IVPB SCH (20:00)
== END 2020-11-30 17:32 | disposition home or self-care (01) ==
LOC: ERS 18:24 → T4-B 23:00
PROVIDERS: ADMIT Student in an Organized Health Care Education/Training Program; ATTEND Student in an Organized Health Care Education/Training Program
DX: A41.9 Sepsis, unspecified organism (principal); N12 Tubulo-interstitial nephritis, not specified as acute or chronic; E87.6 Hypokalemia; R74.01 Elevation of levels of liver transaminase levels; F32.9 Major depressive disorder, single episode, unspecified; Z20.822 Contact with and (suspected) exposure to COVID-19
CPT/HCPCS: 36415; 71045; 71275; 74177; 80053; 81003; 81015; 83605; 83690; 83735; 84703; 85025; 85379; 87040; 87077; 87086; 87186; 87635; 96365; 96367; G0378; J0696; J3370; Q9967; U0003; U0005

== ENCOUNTER 2020-12-29 13:19 | Emergency (ER) | payer SELFPAY ==
[2020-12-29 13:59] LABS: Pregnancy Test - Urine (BHCG) Negative (Negative); Specific Gravity 1.012 (1.002-1.036)
[2020-12-29 14:00] LABS: Pregu Control Background? CLEAR/WHITE (CLR/WHITE); Pregu Control Bar Appear? YES (CONTROL BAR)
[2020-12-29 14:25] LABS: Urobilinogen Normal mg/dL (Less than 2)
[2020-12-29 14:27] LABS: Bilirubin Unable to Interpret (Negative); Clarity Cloudy (Clear); Glucose, Urine (Dipstick) Unable to Interpret mg/dL (Negative); Ketone, Urine Unable to Interpret mg/dL (Negative); Leukocyte Unable to Interpret Leu/uL (Negative); Nitrite Unable to Interpret (Negative); Protein, Urine (Dipstick) Negative (Neg-Trace); Specific Gravity, Urine 1.012 (1.002-1.036); pH, Urine 5.6 (5.0-9.0)
[2020-12-29 14:28] LABS: Bacteria/HPF 1+ HPF (None Seen); Blood, Urine Unable to Interpret (Negative); RBC/HPF 0-3 HPF (0-3); WBC/HPF 21-50 HPF (0-3)
[2020-12-29] MEDS ORDERED: Lidocaine 1% (PF) 30 ML VIAL ONE (16:10)
[2020-12-29] MEDS ORDERED: cefTRIAXone\\ROCEPHIN 1 GM VIAL ONE (16:10)
== END 2020-12-29 17:18 | disposition home or self-care (01) ==
LOC: ERS 13:19
DX: N39.0 Urinary tract infection, site not specified (principal)
CPT/HCPCS: 81003; 81015; 81025; 87077; 87086; 87186; 96372; 99283; J0696; J2001

== ENCOUNTER 2021-09-01 23:22 | Emergency (ER) | payer SELFPAY ==
[2021-09-02] MEDS ORDERED: Bupivacaine 0.25% 10 ML VIAL ONE (00:42)
== END 2021-09-02 02:10 | disposition home or self-care (01) ==
LOC: ERS 23:22
DX: S61.211A Laceration without foreign body of left index finger without damage to nail, initial encounter (principal); F17.210 Nicotine dependence, cigarettes, uncomplicated; W26.0XXA Contact with knife, initial encounter
CPT/HCPCS: 12001; 99283; S0020